=== PATIENT | male | born 1965 | race Caucasian/White ===

== ENCOUNTER 2025-05-13 18:09 | Emergency (ER) | payer OTHER, SELFPAY ==
--- NOTE | ~2025-05-13 | CT_ITS ---
CLINICAL HISTORY: LLQ pain, diverticu? CT abdomen and pelvis with contrast Comparison: None provided Findings: Mild bibasilar atelectasis and scarring. Mild steatotic change of the fat deposition of the liver. The gallbladder is distended. The adrenal glands are normal. Mild volume loss of the pancreas noted. The spleen is nonenlarged. No hydronephrosis. No suspicious features of the imaged cystic lesions in the kidneys. Small mesenteric and periaortic lymph nodes are nonspecific and may be reactive. Calcified and noncalcified plaque involving the imaged aorta and its branches with likely [id number] right and mild-moderate left renal artery stenosis in the nonvascular study. Fat may reflect ingested material versus mural lipoma measuring 1.5 cm in the descending portion of the duodenum. Additional bowel wall thickening is nonspecific and most pronounced in the terminal ileum as can be seen with inflammatory bowel disease and/or enteritis. The appendix is within normal limits. Wall thickening also including of the large intestine, including cecum, splenic flexure, and sigmoid colon. Differential considerations include colitis. Prostate gland measures 5 cm transverse. Moderate to marked wall thickening of the urinary bladder is nonspecific and may reflect cystitis. Moderate bilateral fat containing inguinal hernias are partially imaged, right worse than left. Bilateral spondylolysis of the L5. Severe grade 3 anterolisthesis of the lumbosacral junction or new remodeling of the partial vertebral fusion. Facet arthropathy is multifocal and greater than expected for age. Disc bulges including essentially adjacent segment of the L4-L5 and L3-L4. Mild osteoarthritis of the imaged hips. Degenerative changes also include imaged pubic symphysis and SI joints. Sclerosis including sacrum and iliac bones appear nonaggressive. Mild imaged vertebral height losses appear old/chronic. IMPRESSION: 1. Wall thickening of the large intestine is nonspecific and may reflect colitis. 2. Wall thickening of the terminal ileum can be seen with inflammatory bowel disease. 3. 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 This document has been electronically signed by: Swapnil Mcnair MD on 05/13/2025 22:10:23
[2025-05-13 18:18] VITALS: BP 149/104; PULSE 94; RESP 18; TEMP 36.6; O2SAT 97; BMI 34.7
--- NOTE | 2025-05-13 18:18 | ED_ITS ---
HPI - General Adult General Chief complaint: Abdominal Pain Stated complaint: left side Back pain Time Seen by Provider: 05/13/25 19:22 Source: patient Limitations: no limitations History of Present Illness ED Provider: Linda Hayward PA-C HPI narrative: 59-year-old male with a history of obesity who presents with multiple complaints. Patient states he has been having intermittent left lower abdomen to groin pain over the past 2 days. Associated concurrent low back pain that resembles his prior sciatica symptoms. Denies radiation down the leg, paresthesia, weakness of lower extremity, urinary retention or bowel incontinence. Patient denies nausea vomiting diarrhea or fever. Denies history of kidney stones, dysuria, hematuria. He thinks he is constipated, he does not have a bowel movement every day. Denies abdominal distention or inability to pass flatus. Related Data Previous Rx's ?Medication ?Instructions ?Recorded methocarbamol 750 mg tablet 1,500 mg (2 x 750 mg) PO Q 8H PRN 05/13/25 pain, moderate #24 tabs ketorolac 10 mg tablet 10 mg PO Q6H PRN pain #20 ta bs 05/14/25 methylprednisolone 4 mg tablets in 4 mg PO QAM #21 ea 05/14/25 a dose pack (Medrol (Nic)) Allergies Allergy/AdvReac Type Severity Reaction Status Date / Time No Known Allergies Allergy Verified 05/13/25 18:19 Review of Systems 2 Review of Systems: Yes all other systems are reviewed and are negative Constitutional: Constitutional: Denies fatigue and Denies fever(s) Cardiovascular: Cardiovascular: Denies chest pain and Denies dyspnea Respiratory: Respiratory: Denies dyspnea Gastrointestinal: Gastrointestinal: Reports abdominal pain, Reports constipation, Denies diarrhea, Denies nausea and Denies vomiting Genitourinary: Genitourinary: Denies hematuria, Denies dysuria, Denies flank pain and Denies testicular pain Musculoskeletal: Musculoskeletal: Reports back pain, Denies muscle weakness, Denies numbness, Denies radiating pain into limb and Denies tingling Neurologic: Denies numbness and Denies tingling Endocrine: Endocrine: Denies fatigue PMF Past Medical History Attestation statement: The following information was validated with the patient. Social History Social History Alcohol intake: current Alcohol intake frequency: holidays/special occasions only Physical Exam ED Vital Signs: Vital Signs - 24 hr 05/13/25 18:18 05/13/25 20:18 05/13/25 22:24 Temperature 97.9 F 98.3 F 97.7 F Pulse Rate 94 94 89 Respiratory Rate 18 Blood Pressure 149/104 H 139/92 H 159/96 H Pulse Oximetry 97 97 96 Oxygen Delivery Method Room Air Room Air Room Air 05/14/25 00:00 05/14/25 00:10 Temperature 98.0 F 98.0 F Pulse Rate 67 67 Respiratory Rate 17 17 Blood Pressure 148/85 H 148/85 H Pulse Oximetry 95 95 Oxygen Delivery Method Room Air Room Air BMI result Body Mass Index 34.7 Const Other: Alert well-appearing Orientation/consciousness: patient oriented x3 Resp Effort & Inspection: normal respiratory effort Cardio Other: Normal peripheral perfusion GI Other: Minimal tenderness elicited left lower quadrant with deep palpation of the abdomen otherwise soft, obese, minimal tenderness in the left lower quadrant without guarding General: Yes no CVA tenderness Back/Spine/Pelvis Back: no CVA tenderness Skin Other: Warm dry no rash Neuro General: patient oriented x3, gait normal, no focal motor deficits and CN's II- XI intact bilaterally Extrem Other: Strength 5/5 bilateral lower extremities Psych Other: Cooperative Course Course Course Narrative: RME, this is a rapid medical exam performed by Brando Holbrook please refer to primary provider for complete H&P- 59 year old male presents for evaluation of left lower abdominal pain and constipation since yesterday. Denies any black or bloody stool. Plan for labs, UA. Will defer advanced imaging to primary ER provider. Reevaluation(s) Reevaluation #1: I discussed the numerous likely incidental findings on the CT scan. Clinically the patient has no colitis, he is not having active GI symptoms, they are also calling maybe likely enteritis,. They're stating he may have cystitis, the urine is not infected. The only thing that is legitimate is for the arthritic changes that are noted. We will treat accordingly. Medications Administered Discontinued Medications Generic Name Dose Route Start Last Admin Trade Name Freq PRN Reason Stop Dose Admin Dexamethasone Sodium Phosphate 10 mg 05/13/25 20:26 05/13/25 20:39 Dexamethasone Sod Phosphate 10 Mg/Ml Vial IVPUSH 05/13/25 20:27 10 mg ONCE ONE Administration Diazepam 5 mg 05/13/25 20:26 05/13/25 20:38 Diazepam 10 Mg/2 Ml Cartridge IVPUSH 05/13/25 20:27 5 mg STAT STA Administration Sodium Chloride 1,000 mls @ 999 mls/hr 05/13/25 20:30 05/13/25 23:24 Ns IV 05/13/25 21:30 Infused .Q1H1M IKER Infusion Iohexol 100 ml 05/13/25 21:04 05/13/25 21:04 Iohexol 350 Mg/Ml 100 Ml Infus..Btl IV 05/13/25 21:05 100 ml ONCE ONE Administration Ketorolac Tromethamine 15 mg 05/13/25 23:42 05/13/25 23:52 Ketorolac Tromethamine 15 Mg/Ml Vial IVPUSH 05/13/25 23:43 15 mg ONCE ONE Administration Methocarbamol 1,500 mg 05/13/25 22:41 05/13/25 22:48 Methocarbamol 750 Mg Tablet PO 05/13/25 22:42 1,500 mg ONCE ONE Administration Medical Decision Making Medical Decision Making [facility] Narrative: 59-year-old male with a history of obesity who presents with multiple complaints. Patient states he has been having intermittent left lower abdomen to groin pain over the past 2 days. Associated concurrent low back pain that resembles his prior sciatica symptoms. Denies radiation down the leg, paresthesia, weakness of lower extremity, urinary retention or bowel incontinence. Patient denies nausea vomiting diarrhea or fever. Denies history of kidney stones, dysuria, hematuria. He thinks he is constipated, he does not have a bowel movement every day. Denies abdominal distention or inability to pass flatus. Problem: Obesity History: Per patient I have considered the following differential diagnoses: Lumbar radiculopathy, cauda equina, renal colic, bowel obstruction, constipation, diverticulitis Plan: In regard to the abdominal pain, the patient has no active GI symptoms, he does admit to being constipated, but has no obstructive symptoms. He does have focal pain with deep palpation of the left lower abdomen. Obtaining a CT scan. He is also having low back pain that is similar to his prior sciatica, to note he has no red flag signs symptoms concerning for cord compression. We will treat with Decadron and Valium. Screening labs including urinalysis are in process. I have independently reviewed the following tests: Labs: No leukocytosis, not anemic, no electrolyte abnormality noted, urine not infected CT abdomen and pelvis:Findings: Mild bibasilar atelectasis and scarring. Mild steatotic change of the fat deposition of the liver. The gallbladder is distended. The adrenal glands are normal. Mild volume loss of the pancreas noted. The spleen is nonenlarged. No hydronephrosis. No suspicious features of the imaged cystic lesions in the kidneys. Small mesenteric and periaortic lymph nodes are nonspecific and may be reactive. Calcified and noncalcified plaque involving the imaged aorta and its branches with likely [id number] right and mild-moderate left renal artery stenosis in the nonvascular study. Fat may reflect ingested material versus mural lipoma measuring 1.5 cm in the descending portion of the duodenum. Additional bowel wall thickening is nonspecific and most pronounced in the terminal ileum as can be seen with inflammatory bowel disease and/or enteritis. The appendix is within normal limits. Wall thickening also including of the large intestine, including cecum, splenic flexure, and sigmoid colon. Differential considerations include colitis. Prostate gland measures 5 cm transverse. Moderate to marked wall thickening of the urinary bladder is nonspecific and may reflect cystitis. Moderate bilateral fat containing inguinal hernias are partially imaged, right worse than left. Bilateral spondylolysis of the L5. Severe grade 3 anterolisthesis of the lumbosacral junction or new remodeling of the partial vertebral fusion. Facet arthropathy is multifocal and greater than expected for age. Disc bulges including essentially adjacent segment of the L4-L5 and L3-L4. Mild osteoarthritis of the imaged hips. Degenerative changes also include imaged pubic symphysis and SI joints. Sclerosis including sacrum and iliac bones appear nonaggressive. Mild imaged vertebral height losses appear old/chronic. IMPRESSION: 1. Wall thickening of the large intestine is nonspecific and may reflect colitis. 2. Wall thickening of the terminal ileum can be seen with inflammatory bowel disease. 3. 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 Lab Data 05/13/25 18:38 05/13/25 18:38 Labs: Lab Results 05/13/25 05/13/25 Range/Units 18:38 19:49 WBC 11.9 H (4.8-10.8) X10*3/uL RBC 5.21 (4.60-5.80) X10*6/uL Hgb 17.1 (14.0-18.0) g/dl Hct 48.4 (42.0-52.0) % MCV 92.9 (80.0-98.0) fL MCH 32.8 (27.0-33.0) pg MCHC 35.3 (31.0-36.0) g/dl RDW 13.1 (11.0-16.0) % Plt Count 290 (160-400) X10*3/uL MPV 9.2 L (9.4-12.4) fL Immature Gran % (Auto) 0.3 (0.0-0.4) % Neut % (Auto) 75.1 H (45-73) % Lymph % (Auto) 14.9 L (20-40) % [place] % (Auto) 7.8 (2-11) % Eos % (Auto) 1.2 (0-4) % Baso % (Auto) 0.7 (0-2) % Lymph # (Auto) 1.8 (1.2-4.9) X10*3/uL [place] # (Auto) 0.9 (0.1-1.2) X10*3/uL Eos # (Auto) 0.1 (0.0-0.4) X10*3/uL Baso # (Auto) 0.1 (0.0-0.2) X10*3/uL Abs Immat Gran (auto) 0.04 H (0.00-0.03) X10*3/uL Absolute Neuts (auto) 8.9 H (2.0-8.3) x10*3/uL Absolute Nucleated RBC 0.000 (0.0-0.012) X10*3/uL Nucleated RBC % (auto) 0.0 (0.0-0.2) /100WBC Sodium 138 (135-145) mmol/L Potassium 4.3 (3.3-5.1) mmol/L Chloride 101 (96-108) mmol/L Carbon Dioxide 27 (22-29) mmol/L Anion Gap 14 (12-20) BUN 21 H (9-16) mg/dL Creatinine 1.47 H (0.5-1.4) mg/dL Estim Creat Clear Calc 65.8 Estimated GFR 49 Random Glucose 126 H (60-115) mg/dL Calcium 9.5 (8.4-10.2) mg/dL Total Bilirubin 0.7 (0.0-1.0) mg/dL AST 22 (5-37) U/L ALT 20 (0-40) U/L Alkaline Phosphatase 78 (39-117) U/L Total Protein 7.7 (6.5-8.0) g/dL Albumin 4.9 (3.5-5.0) g/dL Lipase 54 (8-78) U/L Urine Color Dark Yellow Urine Appearance Cloudy Urine pH 6.0 (5.0-9.0) Ur Specific [place] 1.020 (1.005-1.025) Urine Protein 300 (3+) H (Neg-Trace) mg/dL Urine Glucose (UA) Negative (Negative) mg/dL Urine Ketones Trace (Negative) mg/dL Urine Blood Negative (Negative) Urine Nitrite Negative (Negative) Ur Leukocyte Esterase Trace H (Negative) Urine RBC 0-2 (0-2) /HPF Urine WBC 0-5 (0-5) /HPF Ur Squamous Epith Cells 6-10 (0-2) /HPF Urine Bacteria None Seen (None Seen) Hyaline Casts >20 (0-2) /LPF Granular Casts Present Discharge Plan Discharge Clinical Impression: Herniation of intervertebral disc at L3-L4 level, Herniation of intervertebral disc between L4 and L5, Osteoarthritis Patient Disposition: Home, Self-Care Instructions: Osteoarthritis (ED), Lumbar Disc Herniation (ED) Additional Instructions: All of your labs were normal, you were found to have arthritic changes of the spine, and disc bulges at the level of L3-L4 and L4-L5. See home care instructions. Use the Medrol Dosepak as directed this is a steroid taper. Use the ketorolac as directed this is an anti-inflammatory take it with food. Use the methocarbamol as needed for further pain, this is a muscle relaxant. This medication will cause drowsiness do not drive or operate machinery while taking the medication. You should follow up with primary care to inquire about initiating physical therapy. If your symptoms persist, you may also require an MRI as an outpatient, your primary care provider can coordinate this for you. Prescriptions: New methocarbamol 750 mg tablet 1,500 mg PO Q8H PRN (Reason: pain, moderate) Qty: 24 0RF methylprednisolone [Medrol (Nic)] 4 mg tablets,dose pack 4 mg PO QAM Qty: 21 0RF Rx Instructions: Take per package instructions ketorolac 10 mg tablet 10 mg PO Q6H PRN (Reason: pain) Qty: 20 0RF Rx Instructions: maximum total duration of 5 days from all oral, intranasal, or parenteral formulations. The patient received an IV dose of Toradol here in the ER Stand Alone Forms: Work/School Release Interventions: ED Discharge Assessment Last Done: 05/14/25 00:10 Discharge Date/Time: 05/14/25 00:10 Print Language: [place] Citizen
[2025-05-13 18:42] LABS: MANUAL DIFF FLAG NO
[2025-05-13 18:54] LABS: Hematocrit 48.4 % (42.0-52.0); Hemoglobin 17.1 g/dl (14.0-18.0); Imm Gran Abs Auto 0.04 X10*3/uL (0.00-0.03); Imm Gran Pct Auto 0.3 % (0.0-0.4); Lymphocytes Absolute Auto 1.8 X10*3/uL (1.2-4.9); Mean Corpuscular HGB Conc 35.3 g/dl (31.0-36.0); Mean Corpuscular Hemoglobin 32.8 pg (27.0-33.0); Mean Corpuscular Volume 92.9 fL (80.0-98.0); NRBC Abs Auto 0.000 X10*3/uL (0.0-0.012); NRBC Pct Auto 0.0 /100WBC (0.0-0.2); Platelet Count 290 X10*3/uL (160-400); Red Blood Count 5.21 X10*6/uL (4.60-5.80); White Blood Count 11.9 X10*3/uL (4.8-10.8)
[2025-05-13 18:59] LABS: Alanine Aminotransferase 20 U/L (0-40); Albumin Level 4.9 g/dL (3.5-5.0); Alkaline Phosphatase 78 U/L (39-117); Anion Gap 14 (12-20); Aspartate Amino Transferase 22 U/L (5-37); Blood Urea Nitrogen 21 mg/dL (9-16); Calcium 9.5 mg/dL (8.4-10.2); Carbon Dioxide 27 mmol/L (22-29); Chloride 101 mmol/L (96-108); Creatinine Clr Calc Pharmacy 65.8; Estimated Glomerular Filt Rate 49; Lipase 54 U/L (8-78); Potassium 4.3 mmol/L (3.3-5.1); Sodium 138 mmol/L (135-145); Total Protein 7.7 g/dL (6.5-8.0)
[2025-05-13 19:56] LABS: Appearance Urine Cloudy; Glucose Urine UA Negative (Negative); PH 6.0 (5.0-9.0); Specific Gravity - Urine 1.020 (1.005-1.025); UMIC TRIGGER UACC YES
[2025-05-13 20:18] VITALS: BP 139/92; PULSE 94; TEMP 36.8; O2SAT 97
[2025-05-13] MEDS: diazePAM 10 MG/2 ML CARTRIDGE 5 MG IVPUSH (20:38)
[2025-05-13] MEDS: iohexoL 350 MG/ML 100 ML INFUS..BTL IV (21:04)
[2025-05-13 22:24] VITALS: BP 159/96; PULSE 89; TEMP 36.5; O2SAT 96
[2025-05-14] VITALS: BP 148/85; PULSE 67; RESP 17; TEMP 36.7; O2SAT 95
[2025-05-14 00:10] VITALS: BP 148/85; PULSE 67; RESP 17; TEMP 36.7; O2SAT 95
== END 2025-05-14 00:10 | disposition home or self-care (01) ==
PROVIDERS: Physician Assistant; Emergency Provider Emergency Medicine Emergency Medical Services
DX: M51.26 Other intervertebral disc displacement, lumbar region (principal); M47.896 Other spondylosis, lumbar region; R10.32 Left lower quadrant pain
CPT/HCPCS: 36415; 74177; 80053; 81001; 83690; 85025; 96361; 96374; 96375; 99284; 99285; J1100; J1885; J3360; Q9967

== ENCOUNTER → 2025-05-13 20:26 | Outpatient (BNV) | payer OTHER, SELFPAY | PROVIDERS: Emergency Provider Emergency Medicine Emergency Medical Services; Visit Provider Radiology Neuroradiology | DX: D17.5 Benign lipomatous neoplasm of intra-abdominal organs (principal) | CPT/HCPCS: 74177 ==